=== PATIENT | female | born 1985 | race Caucasian/White ===

== ENCOUNTER 2018-08-09 18:32 | Emergency (ER) | payer MEDICAID ==
[~2018-08-09] VITALS: Ht 160 cm; Wt 62.6 kg
[2018-08-09 18:48] VITALS: BP 129/80
--- NOTE | 2018-08-09 18:52 | NUR ---
back to er lobby wait for md mackenzie
--- NOTE | 2018-08-09 19:22 | NUR ---
PT AMBULATED TO ER [facility]
--- NOTE | 2018-08-09 19:45 | NUR ---
PT TO ED WITH C/O COLD SYMPTOMS WITH PRODUCTIVE COUGH X 3 DAYS. PT DENIES CP/SOB. LUNG SOUNDS CTA. NO DISTRESS NOTED. PT PLACED INTO BED, PENDING MD FRANZ.
[2018-08-09 20:35] VITALS: BP 129/80
--- NOTE | 2018-08-09 20:35 | NUR ---
Patient discharged with v/s stable. Written and verbal after care instructions given and explained. Patient alert, oriented and verbalized understanding of instructions. Ambulatory with steady gait. All questions addressed prior to discharge. ID band removed. Patient advised to follow up with PMD. Rx of TESFIORELLA ALVAREZ AND FLONASE given. Patient educated on indication of medication including possible reaction and side effects. Opportunity to ask questions provided and answered.
== END 2018-08-09 20:35 | disposition home or self-care (01) ==
LOC: MED 18:32
DX: J06.9 Acute upper respiratory infection, unspecified (principal); F17.200 Nicotine dependence, unspecified, uncomplicated
CPT/HCPCS: 99283

== ENCOUNTER 2019-03-10 21:51 | Emergency (ER) | payer MEDICAID ==
[~2019-03-10] VITALS: Ht 160 cm; Wt 57.3 kg
[2019-03-10 21:57] VITALS: BP 126/77
--- NOTE | 2019-03-10 22:08 | NUR ---
AMBULATES BACK TO LOBBY WITH STEADY GAIT IN UPRIGHT POSITION. AWAITING AVAILABLE BED.
--- NOTE | 2019-03-10 22:42 | NUR ---
33 Y/O FEMALE DX WITH BRONCHITIS X 2 WEEKS AGO; TX WITH Z-PRINCE. HAD SOME RELIEF OF S/SX BUT STILL HAVING SUBJECTIVE FEVER, CHILLS, SORE THROAT, NAGGING WET NON-PRODUCTIVE COUGH AND LETHARGY. BREATHING IS UNLABORED. CHEST IS SYMMETRICAL; LUNGS SOUNDS CLEAR BILATERALLY ANTERIOR/POSTERIOR. BOWEL SOUNDS ACTIVE ON ALL FOUR QUADRANTS; NO PAIN UPON PALPATION; STOMACH FLAT. PT. ALSO C/O NAUSEA, BUT NO VOMITING; + DIARRHEA. GENERALIZED MALAISE AND MUSCLE PAIN IS A 6/10. ERMD MADE AWARE OF STATUS. SIDE RAILSX1. VSS. PM-- NECK SURGERY, 2018 RX-- TYLENOL THIS AM
--- NOTE | 2019-03-10 22:42 | NUR ---
TAKEN TO XRAY VIA WC.
--- NOTE | 2019-03-10 22:49 | NUR ---
RETURNED FROM XRAY VIA . TAKEN BACK TO LOBBY.
[2019-03-11] MEDS ORDERED: DEXAMETHASONE 4 MG/ML VIAL PO STA (00:58)
[2019-03-11] MEDS ORDERED: BENZONATATE 100 MG CAPLF PO STA (01:01)
[2019-03-11 01:29] VITALS: BP 122/79
--- NOTE | 2019-03-11 01:29 | NUR ---
Patient discharged with v/s stable. Written and verbal after care instructions given and explained. Patient alert, oriented and verbalized understanding of instructions. Ambulatory with steady gait. All questions addressed prior to discharge. ID band removed. Patient advised to follow up with PMD. Rx of ALBUTEROL MDI given. Patient educated on indication of medication including possible reaction and side effects. Opportunity to ask questions provided and answered.
== END 2019-03-11 01:29 | disposition home or self-care (01) ==
LOC: MED 21:51
DX: J40 Bronchitis, not specified as acute or chronic (principal); F17.200 Nicotine dependence, unspecified, uncomplicated; Z71.6 Tobacco abuse counseling; Z98.890 Other specified postprocedural states
CPT/HCPCS: 71045; 99283; J1100

== ENCOUNTER 2019-03-12 14:19 | Emergency (ER) | payer MEDICAID ==
[~2019-03-12] VITALS: Ht 160 cm; Wt 56.7 kg
[2019-03-12 14:30] VITALS: BP 105/65
[2019-03-12] MEDS ORDERED: cefTRIAXone 1,000 MG VIAL ONE (15:19)
[2019-03-12] MEDS: FAMOTIDINE 20 MG/2 ML VIAL IVP ONE (15:44)
[2019-03-12] MEDS: NACL 0.9% 1,000 ML IV ONE (15:46)
[2019-03-12] MEDS: DEXAMETHASONE 10 MG/ML VIAL IVP ONE (15:48)
[2019-03-12] MEDS: diphenhydrAMINE 50 MG/ML VIAL IVP ONE (15:58)
[2019-03-12] MEDS ORDERED: ONDANSETRON 4 MG/2 ML VIAL ONE (16:02)
[2019-03-12] MEDS: ONDANSETRON 4 MG/2 ML VIAL IVP ONE (16:20)
[2019-03-12 17:02] VITALS: BP 103/56
== END 2019-03-12 17:02 | disposition home or self-care (01) ==
LOC: MED 14:19
DX: J32.9 Chronic sinusitis, unspecified (principal); J40 Bronchitis, not specified as acute or chronic
CPT/HCPCS: 71045; 87804; 96365; 96375; 99284; J0696; J1100; J1200; J2405; J3490; J7030; Q0092